=== PATIENT | female | born 1980 | race Caucasian/White ===

== ENCOUNTER → 2020-03-27 | Outpatient (CLI) | payer MEDICARE ==
[2015-08-28 15:46] VITALS: BP 115/62
--- NOTE | 2020-03-27 15:23 | RAD ---
LUMBAR SPINE MIN 4V, KNEE RIGHT 3V History: Back pain, knee pain Comparison: None. Lumbar spine: Findings: 4 views of the lumbar spine are submitted. Lumbar vertebral body stature and AP alignment are maintained. There is severe L4-5 degenerative disc disease, lesser degree of narrowing of the L5-S1 intervertebral disc space likely in part on developmental basis. 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 There is inferior lumbar facet degenerative change. Impression: 1. There is severe L4-5 degenerative disc disease, also spondylosis at this level. Right knee radiographs: FINDINGS: 3 views of the right knee are submitted. No acute fracture, dislocation, or joint effusion is identified. There is minimal osteophyte formation of the patella. There is mild narrowing of the medial compartment joint space. IMPRESSION: 1.No acute radiographic abnormality is identified. There is mild osteoarthritic change. Electronically signed by: Ricardo Hernandez MD (03/27/2020 3:20 PM) [id number]
== END ==
LOC: RAD 14:58
PROVIDERS: ATTEND Physician Assistant Medical
DX: M51.36 Other intervertebral disc degeneration, lumbar region (principal); M43.06 Spondylolysis, lumbar region; M17.11 Unilateral primary osteoarthritis, right knee; M25.761 Osteophyte, right knee
CPT/HCPCS: 72110; 73562

== ENCOUNTER → 2021-02-13 | Outpatient (CLI) | payer MEDICARE ==
[2015-08-28 15:46] VITALS: BP 115/62
--- NOTE | 2021-02-13 16:49 | RAD ---
EXAM: AP, lateral, oblique and odontoid views of the cervical spine DATE: 02/13/2021 2:12 PM CLINICAL HISTORY: Reason: NECK PAIN / Spl. Instructions: / History: COMPARISON: None available. FINDINGS: On the lateral view, the cervical spine is imaged from the skull base to . Vertebral body heights are preserved. Intervertebral disc heights are preserved. Straightening of the normal cervical lordosis. No spondylolisthesis. Normal predental space. No significant prevertebral soft tissue swelling. IMPRESSION: 1. Negative acute fracture or subluxation. Electronically signed by: Mynor Toro MD (02/13/2021 4:47 PM) [id number]
== END ==
LOC: RAD 13:58
PROVIDERS: ATTEND Physician Assistant Medical
DX: M54.2 Cervicalgia (principal)
CPT/HCPCS: 72050

== ENCOUNTER → 2021-04-16 | Outpatient (CLI) | payer MEDICARE ==
[2015-08-28 15:46] VITALS: BP 115/62
--- NOTE | 2021-04-16 15:16 | RAD ---
EXAMINATION: MG DIGITAL BILAT DIAGNOSTIC MAMMO WITH RUBEN, US BREAST LTD RT History: Inner right breast lump/firmness. Comparison: None. Baseline exam. Technique: Bilateral digital diagnostic mammogram views were obtained. CAD was utilized. 3-D tomosyn thesis images were acquired. Subsequently ultrasound of the right breast in the area of clinical conc cristo at 3:00, and at 9:00 was performed. Findings: MAMMOGRAM: Breast Tissue Density B : There are scattered areas of fibroglandular density. There are no dominant masses, suspicious microcalcifications, or architectural distortion. There are benign skin calcification seen bilaterally. There is a 7 mm ovoid nodule in the upper outer right br east at approximately 9:00, 11 cm posterior to the nipple. This appears to have fatty hilum and is li jie a lymph node. ULTRASOUND: In the area of concern at 3:00 7 cm from the nipple, there is normal fibroglandular tissue. No cyst o r mass. At 9:00 and 10:00 11 cm from the nipple, there are 2 ovoid hypoechoic circumscribed masses with echog enic nathan, consistent with lymph nodes. One of these measures 6 mm and the other measures 7 mm. This is consistent with the mammographic abnormality. No suspicious mass. No right axillary lymphadenopath y. IMPRESSION: No evidence of malignancy. No abnormality in the inner right breast in area of concern. Incidentally noted small intramammary lymph nodes in the upper outer right breast. BI-RADS 2-benign. Recommend clinical follow-up and screening mammograms beginning at age of 40. Electronically signed by: Gaby Hoang MD (04/16/2021 3:14 PM) [id number]
== END ==
LOC: MAMMO 13:20
PROVIDERS: ATTEND Physician Assistant Medical
DX: N63.11 Unspecified lump in the right breast, upper outer quadrant (principal)
CPT/HCPCS: 76642; 77066; G0279; 77062